=== PATIENT | male | born 1955 | race African-American/Black ===

== ENCOUNTER 2017-07-07 09:19 | Emergency (ER) | payer MEDICAID ==
[~2017-07-07] VITALS: Ht 188 cm; Wt 86.4 kg
[2017-07-07 09:31] VITALS: BP 176/99; TEMP 97.8
[2017-07-07] MEDS ORDERED: HCTZ 25MG TAB25 MG PO (09:58)
[2017-07-07] MEDS ORDERED: BACTRIM DS 8001 TAB PO (10:09)
[2017-07-07 10:16] VITALS: PULSE 82
== END 2017-07-07 10:18 | disposition home or self-care (01) ==
LOC: COL.ER 09:19
DX: H60.01 Abscess of right external ear (principal); I10 Essential (primary) hypertension; Z85.828 Personal history of other malignant neoplasm of skin; Z87.891 Personal history of nicotine dependence